=== PATIENT | female | born 1965 | race Caucasian/White ===

== ENCOUNTER 2025-04-03 18:05 | Inpatient (IN) | payer MEDICARE ==
[~2025-04-03] VITALS: Ht 170.2 cm; Wt 62.2 kg
[2025-04-03 20:55] LABS: PLATELET COUNT, AUTOMATED 163 10^3/uL (150-450)
[2025-04-03 21:15] LABS: LYMPHOCYTES 9 % (16-44); MONOCYTES 3 % (0-5); NEUTROPHILS 77 % (28-66); PLATELET ESTIMATE NORMAL (NORMAL)
[2025-04-03] MEDS ORDERED: ISOVUE-370 76% 100 ML VIAL As Ordered ONE (21:15)
[2025-04-03 21:23] LABS: ALT/SGPT 17.0 U/L (7.0-40); AST/SGOT 31.0 U/L (<34); CALCIUM LEVEL 10.5 MG/DL (8.3-10.6); CARBON DIOXIDE LEVEL 26.0 MMOL/L (20-31); CHLORIDE LEVEL 82.0 MMOL/L (98-107); CREATININE FOR GFR 1.16 MG/DL (0.55-1.30); GLOMERULAR FILTRATION RATE 53.6 (>45); POTASSIUM SERUM 4.1 MMOL/L (3.5-5.1); SODIUM LEVEL 122.0 MMOL/L (136-145)
[2025-04-03] MEDS: ONDANSETRON 4MG 2ML VIAL IV ONE (21:29)
[2025-04-03] MEDS: MORPHINE 4 MG/ML 1 ML VIAL IV PRN (21:29)
[2025-04-03] MEDS: NS (Normal Saline) 0.9% 1,000 ML IV ONE (21:30)
[2025-04-04] MEDS ORDERED: MORPHINE 2 MG/ML 1 ML VIAL IV PRN (02:00)
[2025-04-04] MEDS: NS (Normal Saline) 0.9% 1,000 ML IV SCH (02:22)
[2025-04-04] MEDS ORDERED: CYCL-707 PO (08:04)
[2025-04-04] MEDS ORDERED: LISI20TA33 PO (08:04)
[2025-04-04] MEDS ORDERED: GABA-1490 PO (08:04)
[2025-04-04] MEDS ORDERED: THERTAB52 PO (08:08)
[2025-04-04] MEDS ORDERED: CHOL10CA2 PO (08:08)
[2025-04-04] MEDS ORDERED: CALCTAB41 PO (08:08)
[2025-04-04] MEDS ORDERED: FOLI1TAB11 PO (08:08)
[2025-04-04] MEDS ORDERED: B-1100TA2 PO (08:08)
[2025-04-04] MEDS ORDERED: FISH10002 PO (08:10)
[2025-04-04] MEDS ORDERED: VITA500T41 PO (08:10)
[2025-04-04] MEDS ORDERED: HOME MED LIST COMPLETE! XX SCH (08:10)
[2025-04-04] MEDS ORDERED: FLAX1300 PO (08:10)
[2025-04-04 08:37] LABS: PLATELET COUNT, AUTOMATED 144 10^3/uL (150-450)
[2025-04-04 09:09] LABS: ALT/SGPT 12.0 U/L (7.0-40); AST/SGOT 19.0 U/L (<34); CALCIUM LEVEL 9.3 MG/DL (8.3-10.6); CARBON DIOXIDE LEVEL 24.0 MMOL/L (20-31); CHLORIDE LEVEL 91.0 MMOL/L (98-107); CREATININE FOR GFR 0.95 MG/DL (0.55-1.30); GLOMERULAR FILTRATION RATE 68.2 (>45); POTASSIUM SERUM 3.5 MMOL/L (3.5-5.1); SODIUM LEVEL 127.0 MMOL/L (136-145)
[2025-04-04] MEDS: BISACODYL 10 MG SUPP PR ONE (12:53)
[2025-04-04] MEDS: PANTOPRAZOLE 40MG VIAL IV SCH (12:53)
[2025-04-04] MEDS: KETOROLAC 30 MG/ML 1 ML VIAL IV PRN (13:03)
[2025-04-04 14:00] VITALS: BP 104/58; TEMP 97.2; O2SAT 94
[2025-04-04] MEDS: HEPARIN SOD 5000 UNITS/ML 1 ML VIAL/SYRINGE SC SCH (15:08)
[2025-04-04 20:00] VITALS: BP 110/66; TEMP 97.2; O2SAT 91
[2025-04-05 04:08] VITALS: BP 109/62; TEMP 97.3; O2SAT 89
[2025-04-05 06:09] LABS: PLATELET COUNT, AUTOMATED 147 10^3/uL (150-450)
[2025-04-05 06:39] LABS: ALT/SGPT 11.0 U/L (7.0-40); AST/SGOT 20.0 U/L (<34); CALCIUM LEVEL 8.9 MG/DL (8.3-10.6); CARBON DIOXIDE LEVEL 22.0 MMOL/L (20-31); CHLORIDE LEVEL 97.0 MMOL/L (98-107); CREATININE FOR GFR 0.83 MG/DL (0.55-1.30); GLOMERULAR FILTRATION RATE 80.2 (>45); POTASSIUM SERUM 3.3 MMOL/L (3.5-5.1); SODIUM LEVEL 132.0 MMOL/L (136-145)
[2025-04-05] MEDS: D5W/0.9% SODIUM CHLORIDE 1,000 ML IV SCH (11:12)
[2025-04-05] MEDS: KCL 10MEQ/100ML SWI (KRUN) 10 MEQ in IV 1 EA IV SCH (13:30)
[2025-04-05 19:58] VITALS: BP 149/85; TEMP 97.7; O2SAT 93
[2025-04-05 21:00] VITALS: BP 149/85; TEMP 97.7; O2SAT 93
[2025-04-05] MEDS: MORPHINE 4 MG/ML 1 ML VIAL IV PRN (21:21)
[2025-04-06 03:24] VITALS: BP 135/66; TEMP 97.2; O2SAT 94
[2025-04-06 05:29] LABS: PLATELET COUNT, AUTOMATED 184 10^3/uL (150-450)
[2025-04-06 05:48] LABS: ALT/SGPT 14 U/L (7.0-40); AST/SGOT 25 U/L (<34); CALCIUM LEVEL 8.8 MG/DL (8.3-10.6); CARBON DIOXIDE LEVEL 23 MMOL/L (20-31); CHLORIDE LEVEL 101 MMOL/L (98-107); CREATININE FOR GFR 0.69 MG/DL (0.55-1.30); GLOMERULAR FILTRATION RATE > 90.0 (>45); POTASSIUM SERUM 3.5 MMOL/L (3.5-5.1); SODIUM LEVEL 134 MMOL/L (136-145)
[2025-04-06 12:00] VITALS: BP 138/70; TEMP 97.3; O2SAT 95
[2025-04-06] MEDS: LIDOCAINE 1% SDV 30 ML VIAL As Ordered ONE (19:34)
[2025-04-06] MEDS ORDERED: dexAMETHasone 4 MG/ML 1 ML VIAL As Ordered ONE (19:41)
[2025-04-06] MEDS ORDERED: MIDAZOLAM INJ 2 MG/2 ML VIAL As Ordered ONE (19:41)
[2025-04-06] MEDS ORDERED: ROCURONIUM BROMIDE 50MG/5ML VIAL As Ordered ONE (19:41)
[2025-04-06] MEDS ORDERED: LIDOCAINE 2% 100 MG/5 ML SDV (FOR ANES.) As Ordered ONE (19:41)
[2025-04-06] MEDS ORDERED: ONDANSETRON 4MG 2ML VIAL As Ordered ONE (19:41)
[2025-04-06] MEDS: ZOSYN 3.375GM VIAL As Ordered ONE (20:45)
[2025-04-06] MEDS ORDERED: SUGAMMADEX SODIUM 500 MG/5 ML VIAL As Ordered ONE (21:21)
[2025-04-06] MEDS ORDERED: KETOROLAC 30 MG/ML 1 ML VIAL As Ordered ONE (21:21)
[2025-04-06] MEDS ORDERED: ONDANSETRON 4MG 2ML VIAL IV PRN (21:45)
[2025-04-06] MEDS ORDERED: MORPHINE 2 MG/ML 1 ML VIAL IV PRN (21:45)
[2025-04-06] MEDS: PIPERACILLIN/TAZOBACTAM SOD 3.375 GM in DEXTROSE 5% (D5W) ADV/MINI-BAG 50 ML IV SCH (22:00)
[2025-04-06 22:19] VITALS: BP 141/78; TEMP 97.2; O2SAT 94
[2025-04-06 22:52] VITALS: BP 143/79; TEMP 97.5; O2SAT 94
[2025-04-06 23:45] VITALS: BP 143/80; TEMP 97; O2SAT 95
[2025-04-07] VITALS (10 sets, daily range): BP systolic 129–139; BP diastolic 71–77; TEMP 92.1–98; O2SAT 86–96
[2025-04-07 09:38] LABS: PLATELET COUNT, AUTOMATED 225 10^3/uL (150-450)
[2025-04-07 10:47] LABS: ALT/SGPT 12 U/L (7.0-40); AST/SGOT 17 U/L (<34); C REACTIVE PROTEIN QUANTITATIV 13.88 MG/DL (<1.0); CALCIUM LEVEL 7.8 MG/DL (8.3-10.6); CARBON DIOXIDE LEVEL 24 MMOL/L (20-31); CHLORIDE LEVEL 104 MMOL/L (98-107); CREATININE FOR GFR 0.64 MG/DL (0.55-1.30); GLOMERULAR FILTRATION RATE > 90.0 (>45); POTASSIUM SERUM 3.2 MMOL/L (3.5-5.1); SODIUM LEVEL 138 MMOL/L (136-145)
[2025-04-07] MEDS: NS (Normal Saline) 0.9% 1,000 ML IV SCH (17:13)
[2025-04-07] MEDS: KCL 10MEQ/100ML SWI (KRUN) 10 MEQ in IV 1 EA IV SCH (17:29)
[2025-04-08 04:00] VITALS: BP 122/70; TEMP 97.4; O2SAT 98
[2025-04-08 06:45] LABS: PLATELET COUNT, AUTOMATED 262 10^3/uL (150-450)
[2025-04-08 07:10] LABS: ALT/SGPT 11 U/L (7.0-40); AST/SGOT 20 U/L (<34); CALCIUM LEVEL 7.5 MG/DL (8.3-10.6); CARBON DIOXIDE LEVEL 24 MMOL/L (20-31); CHLORIDE LEVEL 107 MMOL/L (98-107); CREATININE FOR GFR 0.63 MG/DL (0.55-1.30); GLOMERULAR FILTRATION RATE > 90.0 (>45); POTASSIUM SERUM 3.8 MMOL/L (3.5-5.1); SODIUM LEVEL 141 MMOL/L (136-145)
[2025-04-08 08:00] VITALS: BP 137/71; TEMP 97.3; O2SAT 96
[2025-04-08 09:45] VITALS: BP 137/77; TEMP 97; O2SAT 98
[2025-04-08 12:00] VITALS: BP 144/80; TEMP 97.3; O2SAT 98
[2025-04-08] MEDS: SIMETHICONE 80MG CHEW TAB PO SCH (13:33)
[2025-04-08] MEDS: BISACODYL 10 MG SUPP PR ONE (13:34)
[2025-04-08 16:00] VITALS: BP 146/81; TEMP 97.3; O2SAT 98
[2025-04-09 01:19] VITALS: BP 144/82; TEMP 97.1; O2SAT 94
[2025-04-09] MEDS: ACETAMINOPHEN 500 MG TAB PO ONE (01:26)
[2025-04-09 04:00] VITALS: BP 125/72; TEMP 97.6; O2SAT 97
[2025-04-09 06:43] LABS: PLATELET COUNT, AUTOMATED 336 10^3/uL (150-450)
[2025-04-09 07:20] LABS: ALT/SGPT 10 U/L (7.0-40); AST/SGOT 17 U/L (<34); CALCIUM LEVEL 7.8 MG/DL (8.3-10.6); CARBON DIOXIDE LEVEL 20 MMOL/L (20-31); CHLORIDE LEVEL 105 MMOL/L (98-107); CREATININE FOR GFR 0.58 MG/DL (0.55-1.30); GLOMERULAR FILTRATION RATE > 90.0 (>45); POTASSIUM SERUM 3.2 MMOL/L (3.5-5.1); SODIUM LEVEL 140 MMOL/L (136-145)
[2025-04-09 08:23] VITALS: BP 150/87; TEMP 96.8; O2SAT 96
[2025-04-09] MEDS: KCL 10MEQ/100ML SWI (KRUN) 10 MEQ in IV 1 EA IV SCH (10:28)
[2025-04-09] MEDS: ACETAMINOPHEN 500 MG TAB PO PRN (17:22)
[2025-04-09 17:44] LABS: KETONE, URINE AUTO RFX 1+ mg/dL (NEGATIVE); LEUKOCYTE ESTERASE UR AUTO RFX NEGATIVE (NEGATIVE); MUCUS, URINE RFX SMALL (NEGATIVE); NITRITE, URINE AUTO RFX NEGATIVE (NEGATIVE); RBC, URINE AUTO RFX 0 /HPF (0-3); SQUAM EPITHELIAL CELL UR AURFX 0 /HPF (0-6); WBC, URINE AUTO RFX 0 /HPF (0-3)
[2025-04-09 20:00] VITALS: BP 146/79; TEMP 97.5; O2SAT 97
[2025-04-09] MEDS ORDERED: MORPHINE 4 MG/ML 1 ML VIAL IV PRN (20:40)
[2025-04-09] MEDS ORDERED: MORPHINE 2 MG/ML 1 ML VIAL IV PRN (20:40)
[2025-04-09] MEDS ORDERED: KETOROLAC 30 MG/ML 1 ML VIAL IV PRN (21:55)
[2025-04-09] MEDS: VANCOMYCIN HCL 1,250 MG, VIAL MATE ADAPTER 1 EACH in NS 250 ML IV ONE (22:47)
[2025-04-10] VITALS: BP 134/81; TEMP 98; O2SAT 94
[2025-04-10] MEDS ORDERED: ACETAMINOPHEN *IV* 1,000 MG in IV 1 EA IV PRN (01:00)
[2025-04-10 04:26] VITALS: BP 157/97; TEMP 97.9; O2SAT 96
[2025-04-10] MEDS: VANCOMYCIN HCL 1,000 MG, VIAL MATE ADAPTER 1 EACH in NS 250 ML IV SCH (05:51)
[2025-04-10 06:33] LABS: PLATELET COUNT, AUTOMATED 376 10^3/uL (150-450)
[2025-04-10 07:06] LABS: ALT/SGPT < 9 U/L (7.0-40); AST/SGOT 18 U/L (<34); CALCIUM LEVEL 6.9 MG/DL (8.3-10.6); CARBON DIOXIDE LEVEL 18 MMOL/L (20-31); CHLORIDE LEVEL 103 MMOL/L (98-107); CREATININE FOR GFR 0.52 MG/DL (0.55-1.30); GLOMERULAR FILTRATION RATE > 90.0 (>45); POTASSIUM SERUM 3.4 MMOL/L (3.5-5.1); SODIUM LEVEL 137 MMOL/L (136-145)
[2025-04-10 08:00] VITALS: BP 157/95; TEMP 97.3; O2SAT 97
[2025-04-10 08:48] LABS: C REACTIVE PROTEIN QUANTITATIV 5.47 MG/DL (<1.0)
[2025-04-10] MEDS: KCL 10MEQ/100ML SWI (KRUN) 10 MEQ in IV 1 EA IV SCH (09:03)
[2025-04-10 12:00] VITALS: BP 163/94; TEMP 97.9; O2SAT 98
[2025-04-10] MEDS ORDERED: SODIUM CHLORIDE 0.9% INJ 10 ML SYR IV PRN (13:55)
[2025-04-10] MEDS: VANCOMYCIN HCL 750 MG, VIAL MATE ADAPTER 1 EACH in NS 250 ML IV SCH (14:32)
[2025-04-10 16:00] VITALS: BP 163/95; TEMP 98.1; O2SAT 85
[2025-04-10] MEDS: SODIUM CHLORIDE 0.9% INJ 10 ML SYR IV SCH (18:30)
[2025-04-10 20:00] VITALS: BP 162/75; TEMP 97.7; O2SAT 96
[2025-04-10] MEDS: D5W/0.45% SODIUM CHLORIDE 1,000 ML IV SCH (20:05)
[2025-04-10] MEDS: BISACODYL 10 MG SUPP PR SCH (21:18)
[2025-04-11 05:41] VITALS: BP 160/94; TEMP 97.7; O2SAT 95
[2025-04-11 08:00] VITALS: BP 150/90; TEMP 97.2
[2025-04-11 09:07] LABS: PLATELET COUNT, AUTOMATED 220 10^3/uL (150-450)
[2025-04-11 09:33] LABS: C REACTIVE PROTEIN QUANTITATIV 4.01 MG/DL (<1.0)
[2025-04-11 09:36] LABS: ALT/SGPT 11 U/L (7.0-40); AST/SGOT 27 U/L (<34); CALCIUM LEVEL 7.4 MG/DL (8.3-10.6); CARBON DIOXIDE LEVEL 19 MMOL/L (20-31); CHLORIDE LEVEL 100 MMOL/L (98-107); CREATININE FOR GFR 0.51 MG/DL (0.55-1.30); GLOMERULAR FILTRATION RATE > 90.0 (>45); POTASSIUM SERUM 4.1 MMOL/L (3.5-5.1); SODIUM LEVEL 135 MMOL/L (136-145)
[2025-04-11 12:00] VITALS: BP 158/94; TEMP 97.5; O2SAT 98
[2025-04-11] MEDS: ENOXAPARIN 40 MG/0.4 ML SYRINGE (J1650 PER 10MG) SC SCH (13:39)
[2025-04-11] MEDS: NACL IV SCH (15:37)
[2025-04-11] MEDS: MEROPENEM IV SCH (15:37)
[2025-04-11] MEDS: GABAPENTIN 300 MG CAP PO SCH (15:37)
[2025-04-11 20:52] VITALS: BP 156/91; TEMP 97.2; O2SAT 97
[2025-04-12 00:23] VITALS: BP 155/86; TEMP 97.2; O2SAT 96
[2025-04-12 06:15] VITALS: BP 159/99; TEMP 97.3; O2SAT 96
[2025-04-12 06:30] LABS: BASO # 0.1 10^3/uL (0.0-0.2); BASO % 0.5 % (0.0-1.0); EOS # 0.1 10^3/uL (0.0-0.5); EOS % 0.8 % (0.0-3.0); LYMPH # 1.7 10^3/uL (1.5-5.0); LYMPH % 14.6 % (24.0-44.0); MONO # 1.6 10^3/uL (0.0-0.8); MONO % 13.5 % (2.0-8.0); NEUTROPHILS # 7.9 10^3/uL (1.5-8.5); NEUTROPHILS % 66.5 % (36.0-66.0); PLATELET COUNT, AUTOMATED 304 10^3/uL (150-450)
[2025-04-12 06:42] LABS: C REACTIVE PROTEIN QUANTITATIV 2.45 MG/DL (<1.0)
[2025-04-12 07:05] LABS: CALCIUM LEVEL 6.4 MG/DL (8.3-10.6); CARBON DIOXIDE LEVEL 24 MMOL/L (20-31); CHLORIDE LEVEL 100 MMOL/L (98-107); CREATININE FOR GFR 0.49 MG/DL (0.55-1.30); GLOMERULAR FILTRATION RATE > 90.0 (>45); POTASSIUM SERUM 2.7 MMOL/L (3.5-5.1); SODIUM LEVEL 136 MMOL/L (136-145)
[2025-04-12] MEDS ORDERED: GLUCOSE 4 GM CHEW PO PRN (07:15)
[2025-04-12] MEDS ORDERED: DEXTROSE 50% 50 ML SYRINGE IV PRN (07:15)
[2025-04-12] MEDS ORDERED: GLUCAGON INJ 1 MG VIAL SC PRN (07:15)
[2025-04-12] MEDS: INSULIN LISPRO (NovoLOG) PER UNIT SC SCH (09:03)
[2025-04-12] MEDS: KCL 10MEQ/100ML SWI (KRUN) 10 MEQ in IV 1 EA IV SCH (09:06)
[2025-04-12] MEDS: KCL 20MEQ in NS 1000ML 1,000 ML IV SCH (09:07)
[2025-04-12 12:00] VITALS: BP 137/83; TEMP 97.3; O2SAT 97
[2025-04-12] MEDS ORDERED: POTASSIUM CHLORIDE 10MEQ/100ML SWI As Ordered ONE (13:08)
[2025-04-12 16:12] LABS: CALCIUM LEVEL 7.4 MG/DL (8.3-10.6); CARBON DIOXIDE LEVEL 23 MMOL/L (20-31); CHLORIDE LEVEL 101 MMOL/L (98-107); CREATININE FOR GFR 0.69 MG/DL (0.55-1.30); GLOMERULAR FILTRATION RATE > 90.0 (>45); POTASSIUM SERUM 3.4 MMOL/L (3.5-5.1); SODIUM LEVEL 136 MMOL/L (136-145)
[2025-04-12 20:00] VITALS: BP 146/84; TEMP 97.2; O2SAT 96
[2025-04-13 04:42] VITALS: BP 143/82; TEMP 97.5; O2SAT 95
[2025-04-13 05:34] LABS: BASO # 0.1 10^3/uL (0.0-0.2); BASO % 0.5 % (0.0-1.0); EOS # 0.1 10^3/uL (0.0-0.5); EOS % 1.0 % (0.0-3.0); LYMPH # 2.0 10^3/uL (1.5-5.0); LYMPH % 16.2 % (24.0-44.0); MONO # 1.8 10^3/uL (0.0-0.8); MONO % 14.3 % (2.0-8.0); NEUTROPHILS # 7.9 10^3/uL (1.5-8.5); NEUTROPHILS % 63.9 % (36.0-66.0); PLATELET COUNT, AUTOMATED 365 10^3/uL (150-450)
[2025-04-13 06:07] LABS: C REACTIVE PROTEIN QUANTITATIV 2.57 MG/DL (<1.0)
[2025-04-13 06:17] LABS: CALCIUM LEVEL 7.3 MG/DL (8.3-10.6); CARBON DIOXIDE LEVEL 23 MMOL/L (20-31); CHLORIDE LEVEL 109 MMOL/L (98-107); CREATININE FOR GFR 0.88 MG/DL (0.55-1.30); GLOMERULAR FILTRATION RATE 74.7 (>45); POTASSIUM SERUM 3.5 MMOL/L (3.5-5.1); SODIUM LEVEL 145 MMOL/L (136-145)
[2025-04-13 08:31] VITALS: BP 154/97
[2025-04-13] MEDS ORDERED: LEVO1TAB40 PO (10:52)
[2025-04-13] MEDS ORDERED: PROB250C PO (10:52)
[2025-04-13] MEDS ORDERED: METR-265 PO (10:52)
[2025-04-13] MEDS ORDERED: POTA-298 PO (10:52)
== END 2025-04-13 16:38 | disposition home or self-care (01) | DRG 397 ==
LOC: M ED 18:05 → M ED INP 23:50 → M MSPAV 04-04 13:45
PROVIDERS: ADMIT Family Medicine; ATTEND Internal Medicine
PROC: 0DTJ4ZZ Resection of Appendix, Percutaneous Endoscopic Approach (ICD-10-PCS; principal; 2025-04-06 17:00)
DX: K56.609 Unspecified intestinal obstruction, unspecified as to partial versus complete obstruction (principal); A41.9 Sepsis, unspecified organism; K35.33 Acute appendicitis with perforation, localized peritonitis, and gangrene, with abscess; E87.1 Hypo-osmolality and hyponatremia; F05 Delirium due to known physiological condition; K59.00 Constipation, unspecified; E78.5 Hyperlipidemia, unspecified; M48.00 Spinal stenosis, site unspecified; I10 Essential (primary) hypertension; K56.7 Ileus, unspecified; E16.2 Hypoglycemia, unspecified; E87.6 Hypokalemia; E53.8 Deficiency of other specified B group vitamins; E55.9 Vitamin D deficiency, unspecified; G62.9 Polyneuropathy, unspecified; M54.59 Other low back pain; Z79.899 Other long term (current) drug therapy